=== PATIENT | female | born 1935 | race Caucasian/White ===

== ENCOUNTER → 2020-12-31 17:42 | Outpatient (CLI) | payer MEDICARE ==
[2020-12-31 18:50] LABS: BILIRUBIN NEGATIVE (NEGATIVE); KETONE NEGATIVE (NEGATIVE); NITRITE NEGATIVE (NEGATIVE); UROBILINOGEN NORMAL mg/dL (< 2)
[2020-12-31 18:52] LABS: WHITE CELLS - URINE 0-5 HPF (0-4)
[2020-12-31 18:53] LABS: BACTERIA FEW HPF (NONE SEEN); SQUAMOUS EPITHELIAL OCC HPF (0-4)
== END | disposition home or self-care (01) ==
LOC: D.LABREF 17:42
PROVIDERS: ATTEND Family Medicine
DX: F98.9 Unspecified behavioral and emotional disorders with onset usually occurring in childhood and adolescence (principal)